=== PATIENT | female | born 1975 | race Caucasian/White ===

== ENCOUNTER → 2017-11-08 | Outpatient (CLI) | payer BC ==
--- NOTE | 2017-11-08 11:52 | DIAGNOSTIC IMAGING REPORT ---
ORBITS FOR MRI CLINICAL HISTORY: 42 years-old Female presenting with L CALCIFIC TENDONITIS SHOULDER + ORBITS B4. TECHNIQUE: 3 views of the orbits were obtained. COMPARISON: None. FINDINGS: No radiopaque intraorbital foreign body. Bony orbits grossly intact. Paranasal sinuses grossly clear. Visualized portion of the calvarium intact. IMPRESSION: No intraorbital metallic foreign body to preclude MRI exam. Electronically signed by: Paul Parekh M.D. 11/08/2017 11:50 AM Dictated Date/Time: 11/08/2017 11:50 AM
--- NOTE | 2017-11-08 13:07 | DIAGNOSTIC IMAGING REPORT ---
L UPPER EXT JOINT WITHOUT CLINICAL HISTORY: 42 years-old Female with L CALCIFIC TENDONITIS SHOULDER + ORBITS B4. Chronic left shoulder pain with reported calcific tendinosis. COMPARISON: Left shoulder radiographs 08/06/2015.. TECHNIQUE: Multiplanar, multi sequence MRI of the left shoulder was performed without intravenous contrast. FINDINGS: ROTATOR CUFF: High-grade partial/full thickness equivalent articular sided tear of the mid insertional supraspinatus tendon measures 6 x 7 mm in AP and transverse dimension on images 18 series 6 image 9 series 8. There are additional calcifications within the supraspinatus tendon adjacent to the tear on image 9 series 8 measuring up to 6 mm correlating with the finding seen on comparison radiographs. Moderate associated supraspinatus tendinosis. Mild infraspinatus tendinosis. Teres minor and subscapularis tendons appear intact and unremarkable. The rotator cuff musculature is normal in morphology and signal. BICEPS TENDON: The long-head biceps tendon is intact. No evidence of tendinosis. The biceps nathalie and anchor are intact. LABRUM: Mild linear increased T2 signal involves the anterosuperior quadrant of the labrum suggesting a sublabral recess, image 10 series 4 without acute labral tear identified. There is no evidence for a paralabral cyst. GLENOHUMERAL JOINT: The articular cartilage overlying the glenoid fossa is normal. There is no large glenohumeral joint effusion. There is no loose body or debris present within the glenohumeral joint. ACROMIOCLAVICULAR JOINT: The AC joint is intact without significant degenerative change or mass effect. No evidence of os acromiale. Trace subacromial/subdeltoid bursitis. OUTLET SPACES: The suprascapular notch and quadrilateral space are without obstructing or space occupying lesions. BONE MARROW: No acute fracture or marrow replacing process. Moderate subcortical cystic change/bone marrow edema involves the anterior facet greater tuberosity adjacent to the supraspinatus attachment site. SOFT TISSUES: The periarticular soft tissues are unremarkable. IMPRESSION: 1. 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 2. Small high-grade partial/full thickness equivalent articular sided tear of the mid insertional supraspinatus tendon with background moderate supraspinatus tendinosis. 3. Moderate subcortical cystic change/bone marrow edema of the anterior facet greater tuberosity, likely reactive. 4. Trace subacromial/subdeltoid bursitis. The above report was generated using voice recognition software. It may contain grammatical, syntax or spelling errors. Electronically signed by: Tae Solorzano M.D. 11/08/2017 1:06 PM Dictated Date/Time: 11/08/2017 12:54 PM
== END | disposition home or self-care (01) ==
LOC: C.RADBC 11:03
PROVIDERS: ATTEND Orthopaedic Surgery
DX: M75.32 Calcific tendinitis of left shoulder (principal); M25.512 Pain in left shoulder; H05.89 Other disorders of orbit